=== PATIENT | male | born 1975 | race African-American/Black ===

== ENCOUNTER 2022-11-27 16:27 | Emergency (ER) | payer OTHER, SELFPAY | END 2022-11-27 17:39 | disposition home or self-care (01) | LOC: CSHERS 16:27 | DX: S16.1XXA Strain of muscle, fascia and tendon at neck level, initial encounter (principal); S39.012A Strain of muscle, fascia and tendon of lower back, initial encounter; V89.2XXA Person injured in unspecified motor-vehicle accident, traffic, initial encounter | CPT/HCPCS: 99283 ==